=== PATIENT | male | born 1975 | race Caucasian/White ===

== ENCOUNTER 2017-01-14 12:01 | Emergency (ER) | payer SELFPAY ==
[~2017-01-14] VITALS: Ht 180.3 cm; Wt 97.4 kg
[2017-01-14 12:21] VITALS: BP 156/95
[2017-01-14] MEDS ORDERED: LIDOCAINE 1%, 20ML ONE (12:41)
[2017-01-14] MEDS ORDERED: ONDANSETRON 2MG/ML, 2ML ONE (12:42)
[2017-01-14] MEDS ORDERED: CEFAZOLIN PMX 1GM/50ML 50 ML ONE (12:42)
[2017-01-14] MEDS ORDERED: HYDROmorphone 1 MG/ML, 1ML ONE ×2 (12:42→14:32)
[2017-01-14] MEDS ORDERED: ONDANSETRON 2MG/ML, 2ML IVPush ONE (13:00)
[2017-01-14] MEDS ORDERED: CEFAZOLIN PMX 1GM/50ML 50 ML IVPB ONE (13:00)
[2017-01-14] MEDS ORDERED: SODIUM CHLORIDE FLUSH 10ML SYR IVF ONE (13:00)
[2017-01-14] MEDS ORDERED: DIPH,PERTUSS(ACELL),TET VAC/PF 0.5 ML IM-VACC ONE ×2 (13:00→14:27)
[2017-01-14] MEDS: HYDROmorphone 1 MG/ML, 1ML IVPush PRN ×2 (13:17→14:36)
[2017-01-14] MEDS ORDERED: BACITRACIN ZINC OINT 500U/GM, 0.9 GM ONE (15:48)
== END 2017-01-14 15:57 | disposition home or self-care (01) ==
LOC: ED 15:51
DX: S62.611B Displaced fracture of proximal phalanx of left index finger, initial encounter for open fracture (principal); S61.231A Puncture wound without foreign body of left index finger without damage to nail, initial encounter; F17.210 Nicotine dependence, cigarettes, uncomplicated; X58.XXXA Exposure to other specified factors, initial encounter; Y93.89 Activity, other specified; Y99.0 Civilian activity done for income or pay; Y92.69 Other specified industrial and construction area as the place of occurrence of the external cause
CPT/HCPCS: 10120; 29130; 73140; 90471; 90715; 96365; 96366; 96375; 96376; 99285; J0690; J1170; J2405